=== PATIENT | male | born 1955 | race Asian ===

== ENCOUNTER 2020-06-19 13:11 | Emergency (ER) | payer MEDICARE, OTHER ==
[~2020-06-19] VITALS: Ht 180.3 cm; Wt 94.3 kg
[2020-06-19 14:45] VITALS: BP 154/69
== END 2020-06-19 14:47 | disposition home or self-care (01) ==
LOC: ER 14:04
DX: R04.0 Epistaxis (principal); I10 Essential (primary) hypertension
CPT/HCPCS: 99282